=== PATIENT | male | born 1955 | race Caucasian/White ===

== ENCOUNTER → 2019-03-08 17:45 | Outpatient (CLI) | payer OTHER, SELFPAY ==
--- NOTE | 2019-03-08 18:13 | XR_ITS ---
XR shoulder LT min 2V HISTORY: ITS.REASON: LEFT SHOULDER PAIN, NO INJURY FOR A WEEK, LIMITED ROM ORDERING PHYSICIAN: Gera Ribeiro PATIENT AGE: 63 years Comparison: None FINDINGS: No fracture or dislocation. No lytic or blastic change. There is normal mineralization. There is mild subacromial stenosis which may result in rotator cuff symptomatology. IMPRESSION: Mild subacromial stenosis otherwise negative
--- NOTE | 2019-03-08 18:13 | XR_ITS ---
XR chest 2V HISTORY: Hypertension, cough, smoker ORDERING PHYSICIAN: Gera Ribeiro PATIENT AGE: 63 years COMPARISON: None FINDINGS: The cardiomediastinal silhouette and pulmonary vascularity are within normal limits. There is a patchy area of atelectasis or infiltrate in the left lung base. There is coarsening of bronchovascular markings and may be related to smoking-related lung disease. An area of patchy density is also noted in the right upper lobe. There is evidence of old granulomatous disease. No acute bony findings. IMPRESSION: COPD/smoking-related lung disease with patchy density in the right upper and left lower lobe which may be due to areas of atelectasis, infiltrate, or fibrosis.
== END ==
PROVIDERS: PCP Internal Medicine; Visit Provider Internal Medicine
DX: R07.9 Chest pain, unspecified (principal); M25.512 Pain in left shoulder; I10 Essential (primary) hypertension; Z72.0 Tobacco use
CPT/HCPCS: 71046; 73030; 93005

== ENCOUNTER → 2019-04-14 13:07 | Outpatient (CLI) | payer OTHER, SELFPAY ==
--- NOTE | 2019-04-14 13:20 | CT_ITS ---
CT chest wo con HISTORY: ITS.REASON: CHEST PAIN ORDERING PHYSICIAN: Gera Ribeiro PATIENT AGE: 63 years COMPARISON: None Technique: Axial images obtained. Sagittal, and coronal reformatted images are also generated and reviewed. All CT scans at the facility use one or more dose reduction, viz: automated exposure control, ma/kV adjustment per patient size (including targeted exams where dose is matched to indication, i.e. head), or iterative reconstruction technique. FINDINGS: There are atherosclerotic calcifications of the aorta and coronary arteries. No evidence of aortic aneurysm. No mediastinal or hilar mass. There is mild thickening of the pericardium anteriorly. There is centrilobular emphysema with changes of COPD. Old granulomatous disease is noted. No lobar consolidation or collapse. No evidence of pneumothorax. No central obstructing lesion. No suspicious pulmonary nodules or effusions or infiltrates. There is mild gynecomastia. No acute bony findings. IMPRESSION: 1. No acute finding. 2. Centrilobular emphysema with changes of COPD and old granulomatous disease. 3. Coronary artery calcifications suggesting coronary artery disease
== END ==
PROVIDERS: PCP Internal Medicine; Visit Provider Internal Medicine
DX: R07.9 Chest pain, unspecified (principal)
CPT/HCPCS: 71250

== ENCOUNTER → 2019-05-08 06:19 | Outpatient (CLI) | payer OTHER, SELFPAY ==
--- NOTE | 2019-05-08 06:24 | CA_ITS ---
PROCEDURE: 2-D M-mode and color Doppler study INDICATIONS FOR THE TEST: Chest pain+ COPD Heart Murmur Tobacco Smoking+ Palpitations Fatigue Syncope Edema Hypertension+Diabetes Mellitus Rheumatic Fever SOB+ALONZO+Obesity Hyperlipidemia+ Family History HD Additional History DEFINITY USED-TDS LIMITED WINDOWS PATIENT INFORMATION HEIGHT: 68 WEIGHT:179 GENDER: Male B/P:161/80 2-D/M-MODE INTERPRETATION: 2-D MEASUREMENTS OBSERVED VALUES IN CMS Right Ventricular Dimension (RVDd) 2.6 Interventricular Septum (Thickness)(IVsd) 0.6 Left Ventricular Internal Dimensions(LVIDd) 5.4 Left Ventricular Posterior Wall (Thickness)(LVPWd) 0.7 Aortic Root 2.7 Aortic Cusp Separation 1.8 Left Atrial Dimensions (LAD) 3.6 2D 1. Technically difficult study because of the patient's factor and poor acoustic windows, Definity contrast was utilized to delineate endocardial surfaces. 2. Left atrium is normal size, left ventricle is normal size, there is no concentric left ventricular hypertrophy, visually estimated ejection fraction 55% with no regional wall motion abnormality. 3. The right atrium and right ventricle are mildly enlarged with normal contractility. 4. The aortic, mitral and tricuspid valvular grossly normal. 5. The pulmonic valve is poorly visualized. 6. No significant pericardial effusion noted. DOPPLER INTERROGATION: Doppler interrogation of the aortic, mitral and tricuspid valvular presence of mild mitral and tricuspid regurgitation, tricuspid regurgitation jet velocity is inadequate for calculation of the right ventricular systolic pressure, diastolic parameters are within normal range. CONCLUSION: 1. Technically difficult study because of the patient's factor and poor acoustic windows, Definity contrast was utilized to delineate endocardial surfaces. 2. Normal left ventricular size, visually estimated ejection fraction 55% with no regional wall motion abnormality, diastolic parameters are within normal range. 3. Mildly enlarged right ventricle with normal contractility. 4. Mild mitral and tricuspid regurgitation 5. No significant pericardial effusion noted.
--- NOTE | 2019-05-08 06:25 | NM_ITS ---
CARDIOLITE SPECT MYOCARDIAL PERFUSION LEXISCAN, REST AND STRESS: History: Hypertension, hyperlipidemia, tobacco use, family history, chest pain, shortness of breath and fatigue Procedure: Patient received a 0.4 mg of intravenous Lexiscan, resting heart rate was 59 bpm resting blood pressure 149/91, with Lexiscan maximum heart rate achieved was 98 bpm which is less than 85% of the maximum predicted heart rate and a blood pressure was 170/94. With Lexiscan patient denied any complained of chest pain. Electrocardiogram: Resting electrocardiogram showed sinus bradycardia, with Lexiscan there is less than 1.[address] segment depression noted from the baseline EKG. The EKG portion of the Lexiscan Myoview is nondiagnostic. Cardiac stress and resting SPECT images: Cardiac stress and resting SPECT images were obtained using technetium 99 Myoview 2.5 mCi stress and 10.9 mCi at rest. Gated SPECT further analysis of segmental wall motion and calculation of the ejection fraction also done. Cardiac stress and resting SPECT show uniform myocardial without segmental perfusion abnormality, computer derived ejection fraction is 60% with no regional wall motion abnormality, right ventricle is normal size and contractility. Conclusion: 1. The EKG portion of the Lexiscan Myoview is nondiagnostic. 2. No scintigraphic evidence of reversible ischemia seen, computer derived ejection fraction is 60%, right ventricle is normal size and contractility. 3. Normal Lexiscan Myoview study.
--- NOTE | 2019-05-08 06:53 | HMH.ITSHM ---
Current Home Medications as stated by this patient Hao Arndt SR or apprenticeship training representative. []PRAVASTATIN OMEPRAZOLE MELOXICAM LOSARTAN ASA
== END ==
PROVIDERS: PCP Internal Medicine; Visit Provider Urology
DX: R06.02 Shortness of breath (principal); R07.9 Chest pain, unspecified; E78.5 Hyperlipidemia, unspecified; I10 Essential (primary) hypertension; R93.89 Abnormal findings on diagnostic imaging of other specified body structures; F17.200 Nicotine dependence, unspecified, uncomplicated
CPT/HCPCS: 78452; 93017; 93306; A9502; J2785

== ENCOUNTER → 2019-06-02 11:13 | Outpatient (CLI) | payer OTHER, SELFPAY ==
[2019-06-02 12:10] VITALS: PULSE 68
== END ==
PROVIDERS: PCP Internal Medicine; Visit Provider Physician Assistant
DX: R06.02 Shortness of breath (principal); R06.09 Other forms of dyspnea; R93.89 Abnormal findings on diagnostic imaging of other specified body structures; E78.49 Other hyperlipidemia; I10 Essential (primary) hypertension; F17.200 Nicotine dependence, unspecified, uncomplicated
CPT/HCPCS: 94060; 94640; 94726; 94729